=== PATIENT | female | born 1985 | race Caucasian/White ===

== ENCOUNTER 2025-03-07 23:52 | Emergency (ER) | payer BC, SELFPAY ==
[2025-03-08 00:16] VITALS: BP 141/81
--- NOTE | 2025-03-08 01:34 | ED.SKININJ ---
HPI-Injury
General
Chief Complaint: Skin Surface Trauma
Source: patient
Exam Limitations: none
Time Seen by Provider: 03/08/25 01:17
Nursing documentation reviewed up to this point in time: agreed with
History of Present Illness-Injury
Initial Injury comments:
Note:
CHIEF COMPLAINT(S)
Puncture wound to the foot.
HISTORY OF PRESENT ILLNESS
The patient is a 39-year-old female who presented after sustaining a puncture wound to her foot. She reported stepping on a [place] nail at home, which penetrated her foot. The patient did not quantify how deep the nail entered, but noted there
was substantial bleeding. The patient described feeling more panic than pain at the time of the incident. She was not wearing shoes when the injury occurred.
ALLERGIES
The patient reports an allergy to oxycodone.
MEDICATIONS
The patient will be started on levofloxacin (Levaquin) as coverage for potential infection.
SOCIAL HISTORY
The patient is employed in finance as an operations administrator. No substance use, including smoking, alcohol, and drugs, was discussed.
PHYSICAL EXAM
- Nursing notes reviewed and vital signs reviewed.
- Examination focused on the foot reveals a puncture wound with significant bleeding noted.
PLAN
- Obtain X-ray to ensure no foreign body is retained in the wound.
- Administer tetanus booster.
- Start oral antibiotics with levofloxacin, educating the patient about potential side effects such as tendonitis or tendon rupture.
- Clean the wound and provide discharge instructions on wound care.
- Patient consents to hold off on starting levofloxacin until the following day to monitor for any adverse reactions.
DIFFERENTIAL DIAGNOSIS
The Differential Diagnosis includes, in no particular order and is not limited to:
1. Foreign body in soft tissue
2. Bacterial skin infection (cellulitis)
3. Plantar puncture wound infection
4. Osteomyelitis
5. Soft tissue abscess
6. Tendon injury
7. Nerve injury
8. Hematoma
CARE-UPDATE
03/08/25 - 01:36
X-ray findings indicate no obvious abnormality in the right foot and show no signs of a foreign body. Continue with the current management plan, and monitor for any changes in symptoms.
Disposition:
SUMMARY OF ENCOUNTER
The patient, a 39-year-old female, presented to the emergency department after sustaining a puncture wound to her foot from stepping on a nail at home while barefoot. The nail was not rusted and appeared fairly new. On examination, the wound was
superficial with no indication of deep penetration. X-ray imaging showed no foreign bodies or osseous abnormalities. Management included ensuring the patients tetanus immunization was up to date with the administration of a tetanus booster. Due to
the risk of infection, the patient was prescribed levofloxacin (brand name: Levaquin) but chose to delay the initial dose until the following morning. She was instructed on wound care, including keeping the area clean and dry.
DISPOSITION
Discharge.
ASSESSMENT
Superficial puncture wound to the foot, no foreign body detected.
EMERGENCY TREATMENTS ADMINISTERED
Tetanus booster administered.
PLAN
The patient was instructed to keep the wound clean and dry, and provided with return precautions. She was advised to monitor for signs of infection or any adverse reactions. Start oral levofloxacin the next day.
INDEPENDENT REVIEW OF LABS AND INTERPRETATION OF TESTS
My independent interpretation of the X-ray indicates no foreign body or osseous abnormalities.
PATIENT EDUCATION AND COUNSELING
The patient was educated on proper wound care, signs of infection to watch for, and the importance of taking the prescribed antibiotics to prevent infection.
FOLLOW-UP INSTRUCTIONS
Return to the emergency department if wound infection signs occur. Follow up with primary care if further issues arise.
MEDICATION RECONCILIATION
Prescription for levofloxacin provided, starting the dose the next day per patient preference.
MEDICAL DECISION MAKING
- Number and Complexity of Problems Addressed: Acute condition-puncture wound to the foot. Differential diagnosis includes foreign body in soft tissue, bacterial skin infection (cellulitis), plantar puncture wound infection, osteomyelitis, soft
tissue abscess, tendon injury, nerve injury, hematoma, Lyme disease, deep vein thrombosis.
- Data:
Category 1: My independent review of X-ray indicated no foreign body or osseous abnormalities.
- Risk: Decision to initiate antibiotic treatment due to risk of bacterial infection. Consideration of Admission/Observation: Escalation of care, including admission/observation, was considered given the complexity and risk but the patients stable
condition supported outpatient management.
DIAGNOSIS
- Puncture wound of foot, ICD-10 code S91.339A
- Encounter for prophylactic measures (tetanus), ICD-10 code Z23
Review of Systems
Review of Systems
Allergies reviewed?: Yes
All Other Systems: ROS reviewed and negative except as documented in HPI and ROS
Musculoskeletal: Reports no symptoms
Phy Exam
General Physical Exam
General Presentation: well appearing and no apparent distress
General age: appears stated age
General Skin: warm and dry
General Habitus: normal
General Mental: alert
General Hydration: appears well hydrated
ENT Exam
ENT Exam: EOMI and neck supple
Eye Exam
Eye Exam: PERRL
Cardiovascular Exam
Cardiovascular Exam: regular rate/rhythm
Pulmonary Exam
Pulmonary Exam: lungs clear and no respiratory distress
Neurological Exam
Neurological Exam: alert and oriented x3
Musculoskeletal Exam
Musculoskeletal Exam: full ROM
Skin Exam
Skin Exam: normal color
Psychiatric Exam
Psychiatric Exam: normal mood/affect
Course
Orders/Labs/Results
Orders:
Orders
03/08/25 01:18
Foot, Right 2 View [CR Foot - Right 2 Views] Urgent
Comment: Patient stepped on a nail
Reason For Exam: possible metal in heel
Vital Signs
Initial and Last Documented VS:
Initial Vital Signs
Temp Pulse Resp BP Pulse Ox
98.2 F 73 20 141/81 100
03/08/25 00:16 03/08/25 00:16 03/08/25 00:16 03/08/25 00:16 03/08/25 00:16
Last Documented Vital Signs
Temp Pulse Resp BP Pulse Ox
98.2 F 73 20 141/81 100
03/08/25 00:16 03/08/25 00:16 03/08/25 00:16 03/08/25 00:16 03/08/25 00:16
*Radiology
Radiology exam reviewed: preliminary read by ED provider (No foreign body or obvious osseous abnormality)
*Pulse Oximetry
SaO2: 100
Oxygen Mode of Delivery: Room air
Patient hypoxic: no
*Critical Care Note
Total Time (30-74mins, 75-104mins- exclusive of procedures): Not Applicable
ED Attending Note
-
Portions of this chart may have been created with voice recognition software.� Occasional wrong word or��sound alike� substitutions may have occurred due to the inherent limitations of voice recognition software.
Discharge Plan
Departure
Patient Disposition: Home (Routine Discharge)
Date of Disposition: 03/08/25
Time of Disposition: 01:44
Patient with high blood pressure during this ER visit?: Yes
Condition: Good
Discharge Problem:
Puncture wound to foot
Instructions: Wound Care (DC), Puncture Wound
Prescriptions:
New
levofloxacin 750 mg tablet
750 mg PO DAILY 7 Days Qty: 7 0RF
Referrals:
[facility] [Outside]
Activity Restrictions/Additional Instructions:
Thank You for choosing [facility].
It was a pleasure meeting you and taking part in your care. We hope for your continued healing and wellness.
Please read discharge instructions in their entirety. However, they are for general education and may not describe your exact diagnosis at discharge. Information on your ER visit and medical conditions were discussed with you along with appropriate
follow up information...
If indicated, please take your medications as instructed and indicated on discharge paperwork.
Please schedule a follow up appointment as directed. Call to schedule an appointment
Please return to the emergency department with ANY change in, persisting, or worsening of symptoms. If any of your symptoms do not improve, or persist, or become more severe within 6-12 hours, please return to the emergency department for further
care.
Please return to the emergency department if you develop a headache, neck pain/stiffness, fever greater than 100.4F, chest pain, shortness of breath, persistent nausea, vomiting, slurred speech, difficulty walking, numbness/tingling, weakness, signs
of infection or any other symptoms that are worrisome to you.
If you have any questions or concerns please do not hesitate to call the Hospital at or E-mail me directly at [email or web address]
Interventions
Interventions:
*Risk Screen - Suicide Last Done: 03/08/25 00:16
*General Assessment Last Done: 03/08/25 00:16
*Neglect/Abuse Screening Last Done: 03/08/25 00:16
*ED- Fall Risk Assessment Last Done: 03/08/25 00:16
*ED COVID-19 Vaccine History Last Done: 03/08/25 00:16
Discharge Date and Time
Print Language: [place]
[2025-03-08 01:36] VITALS: BMI 25.0
[2025-03-08] MEDS: ADACEL 0.5 ML IM (01:51)
[2025-03-08 01:59] VITALS: BP 132/44
== END 2025-03-08 02:00 | disposition home or self-care (01) ==
LOC: EMR 23:52
PROVIDERS: EMERGENCY PHYSICIAN Student in an Organized Health Care Education/Training Program
DX: S91.331A Puncture wound without foreign body, right foot, initial encounter (principal); W45.0XXA Nail entering through skin, initial encounter; R03.0 Elevated blood-pressure reading, without diagnosis of hypertension; Z23 Encounter for immunization; Z88.5 Allergy status to narcotic agent
CPT/HCPCS: 99283; 90471; 73620; 90715